=== PATIENT | female | born 1980 | race Caucasian/White ===

== ENCOUNTER → 2020-12-24 | Day surgery (SDC) | payer SELFPAY ==
[~2020-12-24] VITALS: Ht 167.6 cm; Wt 90.7 kg
[~2020-12-24] MED LIST: NORCO 5-325 TA1 EACH PO; ONDANSETRON ODT8 MG PO
[2020-12-24 08:26] LABS: HCT 39.8 % (37.0-47.0); HGB 13.6 g/dl (12.5-16.0); MCHC 34.2 g/dL (32.0-36.0); MCV 84.9 fL (78.0-100.0); MPV 9.4 fL (6.0-9.5); RBC 4.69 M/uL (4.20-5.40); RDW 12.8 % (11.5-14.0); WBC 6.7 K/uL (4.0-10.5)
[2020-12-24 08:29] LABS: HCG (URINE) SCREEN NEGATIVE (NEGATIVE)
[2020-12-24 08:42] LABS: BUN/CREAT RATIO (CALC) 23.6 RATIO; CREATININE 0.55 mg/dL (0.51-0.95); POTASSIUM 4.4 mmol/L (3.5-5.1)
== END | disposition home or self-care (01) ==
LOC: FAS 07:54
PROVIDERS: Anesthesiology; Surgery
DX: D34 Benign neoplasm of thyroid gland (principal); Z98.51 Tubal ligation status
CPT/HCPCS: 36415; 80048; 84703; J1100; J1170; J2250; J2405; J2704; J2710; J3010; J7120